=== PATIENT | female | born 2000 | race Two or more races ===

== ENCOUNTER 2020-12-26 15:22 | Emergency (ER) | payer OTHER ==
[~2020-12-26] VITALS: Ht 154.9 cm; Wt 47.7 kg
[2020-12-26 18:47] VITALS: BP 120/71
== END 2020-12-26 18:48 | disposition home or self-care (01) ==
LOC: EMS 15:34
DX: R59.1 Generalized enlarged lymph nodes (principal); F12.90 Cannabis use, unspecified, uncomplicated
CPT/HCPCS: 99283